=== PATIENT | male | born 1940 | race Caucasian/White ===

== ENCOUNTER → 2017-07-22 | Outpatient (CLI) | payer OTHER ==
[~2017-07-22] MED LIST: ACETAMINOPHEN325 M1 PO; ADULT LOW DOSE81 MG PO; ADVAIR 250-501 EACH INH; ADVAIR HFA 1112 UNIT INH; CARDIZEM CD240 MG PO; COLACE 100 MG100 MG PO; COLACE100 MG PO; COUMADIN 2 MG TA2 M1 PO; COUMADIN 4 MG TA4 M1 PO; COUMADIN 5 MG TA5 M1 PO; FERRO-TIME325 MG PO; FLECAINIDE ACET50 M1 PO; FLEET ENEMA118 ML RECTAL; HYDROCODON-ACE1 EAC5 PO; LIPITOR20 MG PO; LISINOPRIL20 MG PO; LISINOPRIL5 MG PO; LORTAB 5 MG/5001 TA1 PO; LOVASTAT20 PO; LOVASTAT40 PO; MIRALAX255 GM PO; MULTIVITAMINS PO; NORCO 5-325 TA1 EACH PO; OMEPRAZOLE 20 M20 M1 PO; PRADAXA150 MG PO; PROAIR HFA8.5 GM INH; REMICADE 1100 MG/VIA IV; SENNA S TABLET1 EACH PO; SPIRIVA INH; TAMSULOSIN HCL0.4 M1 PO
--- NOTE | ~2017-07-22 | 2DMMODE ---
[facility] [address] [place] [address] 2 D/M-MODE ECHOCARDIOGRAM Name: THELMA CAMPOS Leigh Room #: REG [facility]#: [id number] Admission: 07/22/17 Attend Phys: Yordan Mcnamara MD Discharge: Date of : 42 Date of Service: 07/22/17 1101 Report #: [id number] THIS REPORT FOR: //name// APPROVED REPORT Study performed: 07/22/2017 09:46:41 EXAM: Comprehensive 2D, Doppler, and color-flow Echocardiogram Patient Location: Echo lab Status: routine BSA: 1.88 HR: 72 bpm BP: 117/87 mmHg Other Information Study Quality: Adequate Indications CAD 2D Dimensions RVDd: 37.44 mm LVEF(%): 67.97 (>50%) IVSd: 10.81 (7-11mm) LVOT Diam: 23.06 (18-24mm) LVDd: 31.55 mm PWd: 12.40 (7-11mm) Ascending Ao: 26.45 (22-36mm) LVDs: 19.97 (25-40mm) Aortic Root: 30.41 mm IVC: 18.00 mm Navarro's LVEF: 67.97 % Volumes Left Atrial Volume (Systole) Single Plane 4CH: 45.67 mL Single Plane 2CH: 60.23 mL LA ESV Index: 27.00 mL/m2 Aortic Valve AoV Peak Ronak.: 1.31 m/s AO Peak Gr.: 6.82 mmHg LVOT Max P.58 mmHg LVOT Max V: 1.17 m/s SYLVIA Vmax: 3.74 cm2 Mitral Valve E/A Ratio: 1.8 MV Decel. Time: 250.34 ms MV E Max Ronak.: 1.33 m/s [facility] [address] [place] [address] 2 D/M-MODE ECHOCARDIOGRAM Name: THELMA CAMPOS Room #: [facility]#: [id number] Admission: 07/22/17 Attend Phys: Yordan Mcnamara MD Discharge: Date of : 42 Date of Service: 07/22/17 1101 Report #: [id number] MV A Ronak.: 0.74 m/s MV PHT: 72.60 ms IVRT: 87.66 ms Pulmonary Valve PV Peak Ronak.: 0.95 m/s PV Peak Gr.: 3.62 mmHg Pulmonary Vein P Vein S: 0.62 m/s P Vein A: 0.18 m/s P Vein D: 0.49 m/s P Vein A Dur.: 120.0 msec P Vein S/D Ratio: 1.27 Tricuspid Valve RAP Estimate: 5.00 mmHg Left Ventricle The left ventricle is normal size. Mild concentric left ventricular hypertrophy. The left ventricular systolic function is normal. The left ventricular ejection fraction is within the normal range. LVEF is 55-60%. Moderate diastolic dysfunction is present (pseudonormal filling). Right Ventricle The right ventricle is normal size. The right ventricular systolic function is normal. Atria The left atrium size is normal. Right atrium is mildly dilated. Aortic Valve Mild aortic valve sclerosis. No aortic regurgitation is present. There is no aortic valvular stenosis. Mitral Valve The mitral valve is normal in structure. There is no mitral valve regurgitation noted. No evidence of mitral valve stenosis. Tricuspid Valve The tricuspid valve is normal in structure. There is no tricuspid valve regurgitation noted. Unable to assess PA pressure. Pulmonic Valve The pulmonary valve is normal in structure. Trace pulmonic regurgitation. [facility] [address] [place] [address] 2 D/M-MODE ECHOCARDIOGRAM Name: THELMA CAMPOS Room #: REG [facility]#: [id number] Admission: 07/22/17 Attend Phys: Yordan Mcnamara MD Discharge: Date of : 42 Date of Service: 07/22/17 1101 Report #: [id number] Great Vessels The aortic root is normal in size. IVC is normal in size and collapses >50% with inspiration. Pericardium There is no pericardial effusion. <Conclusion> The left ventricle is normal size. Mild concentric left ventricular hypertrophy. The left ventricular systolic function is normal. Moderate diastolic dysfunction is present (pseudonormal filling). The right ventricle is normal size. The left atrium size is normal. Mild aortic valve sclerosis. The mitral valve is normal in structure. There is no pericardial effusion. <ELECTRONICALLY SIGNED> By: Yordan Mcnamara MD 07/22/17 110 00 00 Yordan Mcnamara MD /INF
== END ==
LOC: CV 06:33
DX: I51.7 Cardiomegaly (principal); I35.8 Other nonrheumatic aortic valve disorders; I25.10 Atherosclerotic heart disease of native coronary artery without angina pectoris

== ENCOUNTER → 2019-08-18 | Outpatient (CLI) | payer OTHER | LOC: SJCVCIMAG 08-06 11:08 | PROVIDERS: ATTEND Internal Medicine Cardiovascular Disease | DX: I08.2 Rheumatic disorders of both aortic and tricuspid valves (principal); I11.9 Hypertensive heart disease without heart failure; I48.91 Unspecified atrial fibrillation; R94.31 Abnormal electrocardiogram [ECG] [EKG]; I45.10 Unspecified right bundle-branch block; E78.00 Pure hypercholesterolemia, unspecified; K21.9 Gastro-esophageal reflux disease without esophagitis; J44.9 Chronic obstructive pulmonary disease, unspecified; Z79.899 Other long term (current) drug therapy; Z87.891 Personal history of nicotine dependence ==

== ENCOUNTER → 2020-02-19 | Outpatient (CLI) | payer OTHER | LOC: SJCVC 10:54 | PROVIDERS: ATTEND Internal Medicine Cardiovascular Disease | DX: I45.2 Bifascicular block (principal); R94.31 Abnormal electrocardiogram [ECG] [EKG]; I48.0 Paroxysmal atrial fibrillation; I25.10 Atherosclerotic heart disease of native coronary artery without angina pectoris; I10 Essential (primary) hypertension; E78.00 Pure hypercholesterolemia, unspecified; J44.9 Chronic obstructive pulmonary disease, unspecified; K21.9 Gastro-esophageal reflux disease without esophagitis; E78.5 Hyperlipidemia, unspecified; Z87.891 Personal history of nicotine dependence; Z79.899 Other long term (current) drug therapy ==

== ENCOUNTER → 2020-11-08 | Outpatient (CLI) | payer OTHER | LOC: CAT 13:36 | PROVIDERS: ATTEND Specialist | DX: K44.9 Diaphragmatic hernia without obstruction or gangrene (principal); B38.9 Coccidioidomycosis, unspecified; K80.20 Calculus of gallbladder without cholecystitis without obstruction; J90 Pleural effusion, not elsewhere classified; I25.10 Atherosclerotic heart disease of native coronary artery without angina pectoris; I51.7 Cardiomegaly; J98.4 Other disorders of lung; J98.6 Disorders of diaphragm ==

== ENCOUNTER → 2021-04-11 | Outpatient (CLI) | payer OTHER | LOC: SJCVC 16:07 | PROVIDERS: ATTEND Internal Medicine Cardiovascular Disease | DX: R94.31 Abnormal electrocardiogram [ECG] [EKG] (principal); I45.10 Unspecified right bundle-branch block; I48.91 Unspecified atrial fibrillation; I25.10 Atherosclerotic heart disease of native coronary artery without angina pectoris; I10 Essential (primary) hypertension; E78.00 Pure hypercholesterolemia, unspecified; J44.9 Chronic obstructive pulmonary disease, unspecified; K21.9 Gastro-esophageal reflux disease without esophagitis; E78.5 Hyperlipidemia, unspecified; Z87.891 Personal history of nicotine dependence; Z79.899 Other long term (current) drug therapy ==

== ENCOUNTER → 2021-04-26 | Outpatient (CLI) | payer OTHER ==
[~2021-04-26] MED LIST changes: +ASA81BEC PO; +ELIQUIS5 MG PO; +FAMOTIDINE 40 M40 M1 PO; +PREGABALIN75 MG PO
== END ==
LOC: SJCVCIMAG 07:11
PROVIDERS: ATTEND Internal Medicine Cardiovascular Disease
DX: I25.10 Atherosclerotic heart disease of native coronary artery without angina pectoris (principal); I48.91 Unspecified atrial fibrillation; I10 Essential (primary) hypertension; E78.00 Pure hypercholesterolemia, unspecified; Z79.82 Long term (current) use of aspirin; Z79.899 Other long term (current) drug therapy; J44.9 Chronic obstructive pulmonary disease, unspecified; K21.9 Gastro-esophageal reflux disease without esophagitis; E78.5 Hyperlipidemia, unspecified; Z87.891 Personal history of nicotine dependence; R06.00 Dyspnea, unspecified

== ENCOUNTER 2021-05-01 08:10 | Observation (INO) | payer OTHER ==
[~2021-05-01] VITALS: Ht 167.6 cm; Wt 75.7 kg
[~2021-05-01 08:10] MED LIST changes: -ASA81BEC PO; -ELIQUIS5 MG PO; -FAMOTIDINE 40 M40 M1 PO; -PREGABALIN75 MG PO
[2021-05-01 08:57] VITALS: BP 121/88
[2021-05-01] MEDS ORDERED: ELIQUIS5 MG PO (09:15)
[2021-05-01] MEDS ORDERED: ASA81BEC PO (09:16)
[2021-05-01] MEDS ORDERED: PREGABALIN75 MG PO (09:19)
[2021-05-01] MEDS ORDERED: FAMOTIDINE 40 M40 M1 PO (09:19)
--- NOTE | 2021-05-01 11:50 | EKG ---
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1940 Requested By: Yordan Mcnamara Order Number: [id number] MD: Roman Mercer Measurements Intervals [place] Rate: 85 P: OK: QRS: -120 QRSD: 140 T: -10 QT: 434 QTc: 517 Interpretive Statements Atrial fibrillation Right bundle branch block Compared to ECG 01/05/2013 07:52:47 Right bundle-branch block now present Sinus rhythm no longer present Atrial premature complex(es) no longer present First degree AV block no longer present Right superior axis no longer present Right ventricular hypertrophy no longer present T-wave abnormality no longer present Prolonged QT interval no longer present Electronically Signed On 05-01-2021 11:50:32 [employer]INTED [employer]ARD PANELS DEVELOPER by Roman Mercer [email or web address] <ELECTRONICALLY SIGNED> By: Roman Mercer MD, [facility] 05/01/21 1150 1142 1142 Roman Mercer MD, [facility] /EPI
--- NOTE | 2021-05-01 13:06 | 2DMMODE ---
[facility] [place] [employer] [place] [address] 2 D/M-MODE ECHOCARDIOGRAM Name: THELMA CAMPOS Room #: REG [facility]#: [id number] Admission: 05/01/21 Attend Phys: Yordan Mcnamara MD Discharge: Date of : 42 Report #: [id number] THIS REPORT FOR: cc: Dave Bergman Theodore M. DO Park, Jin S. MD ~ APPROVED REPORT Study performed: 05/01/2021 12:37:13 EXAM: Comprehensive 2D, Doppler, and color-flow Echocardiogram Patient Location: Bedside Room #: 3 Status: routine BSA: 1.84 HR: 83 bpm BP: 121/88 mmHg Rhythm: LBBB Other Information Study Quality: Adequate Indications CAD 2D Dimensions IVC: 16.00 mm Pulmonary Valve PV Peak Ronak.: 0.83 m/s PV Peak Gr.: 2.77 mmHg Tricuspid Valve TR Peak Ronak.: 2.68 m/s TR Peak Gr.: 28.87 mmHg PA Pressure: 34.00 mmHg Left Ventricle The left ventricle is normal size. There is normal LV segmental wall motion. There is normal left ventricular wall thickness. The left ventricular systolic function is normal. The left ventricular ejection fraction is within the normal range. LVEF is 60-65%. This study is not technically sufficient to allow evaluation of the LV diastolic function. [address] [address] 2 D/M-MODE ECHOCARDIOGRAM Name: THELMA CAMPOS Room #: REG [facility]#: [id number] Admission: 05/01/21 Attend Phys: Yordan Mcnamara MD Discharge: Date of : 42 Report #: [id number] Right Ventricle The right ventricle is normal size. The right ventricular systolic function is normal. Atria Left atrium is dilated. Right atrium is dilated. Aortic Valve The aortic valve is normal in structure. The Aortic valve is sclerotic. No aortic regurgitation is present. There is no aortic valvular stenosis. Mitral Valve The mitral valve is normal in structure. Mild mitral regurgitation. No evidence of mitral valve stenosis. Tricuspid Valve The tricuspid valve is normal in structure. There is trace to mild tricuspid regurgitation.Estimated PAP 34mmHg. There is mild pulmonary hypertension. Pulmonic Valve The pulmonary valve is normal in structure. Trace pulmonic regurgitation. Great Vessels The aortic root is normal in size. IVC is normal in size and collapses >50% with inspiration. Pericardium There is no pericardial effusion. <Conclusion> The left ventricle is normal size. There is normal left ventricular wall thickness. The left ventricular systolic function is normal. The right ventricle is normal size. Left atrium is dilated. The Aortic valve is sclerotic. Mild mitral regurgitation. There is trace to mild tricuspid regurgitation.Estimated PAP [address] [address] 2 D/M-MODE ECHOCARDIOGRAM Name: THELMA CAMPOS Room #: REG [facility].#: [id number] Admission: 05/01/21 Attend Phys: Yordan Mcnamara MD Discharge: Date of : 42 Report #: [id number] 34mmHg. There is no pericardial effusion. <ELECTRONICALLY SIGNED> By: Yordan Mcnamara MD 05/01/21 1305 130 1305 Yordan Mcnamara MD /INF
--- NOTE | 2021-05-01 13:30 | NUR ---
RT THOMAS IN ROOM 3 TO PULL SHEATH. SHEATH PULLED WITHOUT INCIDENT AND PRESSURE HELD.
--- NOTE | 2021-05-01 13:40 | CATHLAB ---
[facility] [address] [place] [address] INVASIVE PROCEDURE REPORT Name: THELMA CAMPOS [facility] [id number] Admission: 05/01/21 Attend Phys: Yordan Mcnamara MD Discharge: Date of : 42 Report #: [id number] THIS REPORT FOR: cc: Dave Bergman Theodore M. DO Park, Jin S. MD ~ APPROVED REPORT Study performed: 05/01/2021 09:39:07 Patient Details Patient Status: Out-Patient Room #: The patient is a 80 year-old male Event Personnel Yordan Mcnamara Chief Solution Architect, Naveed Branch RN RN, Usman Langley TRACK MAN Scrub, , Neeta Bhardwaj RTR Monitor Procedures Performed FFR [id number] FFR Art Access - R femoral artery* MAIRA Place w/wo Plasty Single CIRC 059651 Left Heart Cath w/or w/o Coronaries 0799065 LHC Hemostasis with Manual pressure 46583 Initial Mod Sed Same Phys/QHP Gr5y 610945 26472 Mod Sed Same Phys/QHP Ea 460969 Indication Dyspnea, Positive stress test Risk Factors Chronic Lung DiseaseHypercholesterolemiaPhysical Activity, Coronary Artery DiseaseHypertension Procedure Narrative The Right Groin^ was infiltrated with 1% Lidocaine subcutaneous anesthesia. A PINNACLE 4FR Sheath #[id number] sheath was inserted into the RFA^. Coronary angiography was performed using coronary diagnostic catheters. The right coronary system was accessed and visualized with a JR4 catheter. The left coronary system was accessed and visualized with a JL4 catheter. Pre-demployment femoral angiogram was performed . The patient tolerated the procedure well and there were no complications associated with the procedure. PRE FFR 1.0 POST FFR .96 6 FR sheath was sutured in place to be removed in 2 hours [facility] [place] [address] INVASIVE PROCEDURE REPORT Name: THELMA CAMPOS Room #: REG [facility]#: [id number] Admission: 05/01/21 Attend Phys: Yordan Mcnamara MD Discharge: Date of : 42 Report #: [id number] Intraoperative Conscious Sedation Sedation start time: 9:49 Case end Time: 11:05 Fentanyl 50 mcg Versed 1 mg Fluoro Time: 19.40 minutes Dose: DAP 55671.50 cGycm2 5101 mGy Contrast Type and Amount: Omnipaque 230 ml Coronary Angiography The patient's coronary anatomy is right dominant. Diagnostic Cath Left Main Left main artery large caliber vessel, patent with no flow-limiting lesions. LAD The LAD is a moderate-sized caliber vessel, moderately calcified in the proximal segment. After giving of the first diagonal artery, the LAD divides into a dual LAD system. The medial LAD supplies the septal perforators as it travels down to the apex. The lateral LAD supplies diagonal arteries as it travels down to the apex. In the proximal LAD segment, there is a 50% stenosis. Diagonal 1 There is a small to moderate-sized caliber vessel, patent with no flow-limiting lesions. Circumflex The left circumflex artery is a moderate-sized caliber vessel with a severe occlusion in the mid segment, 90%. This area is calcified. After the obstruction, 2 OM branches originate from the left circumflex. OM1 This is a moderate-sized caliber vessel, travels the inferolateral wall with no flow-limiting lesions. OM2 There is a small to moderate-sized caliber vessel, patent with no flow-limiting lesions. 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 This area is tortuous and moderately calcified with mild to moderate stenosis, 30 to 40%. R PDA There is a severe stenosis, 70% in the proximal segment. RPLV This is a small caliber vessel, patent with no flow-limiting lesions. Left Ventriculography Left Ventriculography was not performed. Ejection Fraction was 55-60% based off patient's Nuclear Cardiac Stress Test. An LVEDP was measured and there is no gradient across the outflow tract. Hemodynamics [facility] [address] [place] [address] INVASIVE PROCEDURE REPORT Name: THELMA CAMPOS [place] [facility] [id number] Admission: 05/01/21 Attend Phys: Yordan Mcnamara MD Discharge: Date of : 42 Report #: [id number] The aortic pressure is 137/83 mmHg with a mean of 106 mmHg. The left ventricular pressure is 154/11 mmHg with a mean of mmHg. The left ventricular end diastolic pressure is 17 mmHg. PCI Technique Lesion Percutaneous coronary intervention was performed on the mid circumflex artery segment. The lesion stenosis prior to intervention was 90% with ELICIA 3 flow. A VISTA 6FR XB 3.5 #[id number] Guide Catheter was used to engage the ostium. A Luge Wire .014 x 182CM #[id number] Interventional Guidewire was used to cross the lesion. BALLOON DILATION A Balloon catheter TREK RX 2.50 X 8 #[id number] was inserted and inflated up to 14.00atm for 20seconds. Additional Inflation: 18.00atm for 17seconds. STENT DEPLOYMENT A drug-eluting stent XIENCE SKYPOINT 2.75 X 12 was inserted and inflated up to 14.00atm for 41seconds. POST STENT DEPLOYMENT BALLOON DILATION A Balloon catheter Euphora NC RX 2.75 x 8 #[id number] was inserted and inflated up to 18.00atm for 32seconds. Additional Inflation: 16.00atm for 21seconds. Additional Inflation: 18.00atm for 27seconds. An additional Euphora NC RX 3.0x8 balloon was inserted and inflated for 18 shivani for 27 seconds Final angiography reveals 5 % stenosis with ELICIA 3 flow. Conclusion 1. PCI performed with placement of a drug-eluting stent into the mid segment of the left circumflex artery, extending into the proximal segment of OM1. 2. There is a calcified, moderate stenosis in the proximal LAD segment. IFR was 0.96, nonobstructive stenosis. 3. There is a severe stenosis in the proximal PDA. Recommend medical therapy. 4. There is normal LV systolic function. 5. Recommend antiplatelet therapy and aggressive risk factor management. <ELECTRONICALLY SIGNED> By: Yordan Mcnamara MD 05/01/210 39 39 Yordan Mcnamara MD /INF
[2021-05-01 14:20] VITALS: BP 144/92
--- NOTE | 2021-05-01 14:46 | NUR ---
PTS SHEATH WAS REMOVED AND HEMOSTASIS WAS OBTAINED AT 1355
[2021-05-01 19:39] VITALS: BP 121/79
--- NOTE | 2021-05-01 21:16 | NUR ---
PT ALERT AND ORIENTED X4, MOVES ALL EXTREMITIES AND FOLLOWS COMMANDS. DENIES PAIN OR DISCOMFORT. RIGHT GROIN SITE CLEAN AND DRY WITH DRESSING INTACT. SOFT TO PALP AND NO HEMATOMA NOTED. CURRENTLY RESTINTG WITH EYES CLOSED, RESP EVEN AND NON LABORED WITH NO DISTRESS NOTED AT THIS TIME. ALL VS AND ASSESSMENTS CHARTED, WILL CONTINUE TO MONITOR.
== END 2021-05-02 | disposition still patient (30) ==
LOC: CATH 08:10 → 2N 14:30
PROVIDERS: ADMIT Internal Medicine Cardiovascular Disease; ATTEND Internal Medicine Cardiovascular Disease
DX: I25.10 Atherosclerotic heart disease of native coronary artery without angina pectoris (principal); I10 Essential (primary) hypertension; E78.00 Pure hypercholesterolemia, unspecified; E78.5 Hyperlipidemia, unspecified; Z79.899 Other long term (current) drug therapy